=== PATIENT | female | born 1930 | race Caucasian/White ===

== ENCOUNTER 2019-04-17 16:04 | Emergency (ER) | payer MEDICARE, OTHER ==
--- NOTE | 2019-04-17 17:05 | RAD ---
EXAM: CHEST ONE VIEW HISTORY: Altered mental status COMPARISON: 09/24/2012 FINDINGS: Cardiac silhouette is magnified by projection but stable in size. Pulmonary vasculature is within nor mal limits. Soft tissue density overlies the left lung base limiting evaluation, but the lungs are otherwise clear. Mild degenerative changes are seen in the spine with right glenohumeral osteoarthrop athy. Vascular calcifications are seen in an ectatic thoracic aorta. Chest is overall stable compared to prior exam. IMPRESSION: No acute cardiopulmonary process.
== END 2019-04-17 17:30 ==
LOC: MADERS 16:04
DX: G30.9 Alzheimer's disease, unspecified (principal); E10.9 Type 1 diabetes mellitus without complications; I10 Essential (primary) hypertension; F32.9 Major depressive disorder, single episode, unspecified
CPT/HCPCS: 36416; 71045